=== PATIENT | male | born 1955 | race Caucasian/White ===

== ENCOUNTER → 2017-02-09 | Outpatient (CLI) | payer BC | LOC: COL.CARD 02-03 14:20 | DX: R03.0 Elevated blood-pressure reading, without diagnosis of hypertension (principal) ==

== ENCOUNTER → 2019-10-25 | Outpatient (CLI) | payer MEDICARE, BC | LOC: COL.RAD 08:45 | DX: Z13.6 Encounter for screening for cardiovascular disorders (principal) ==

== ENCOUNTER 2023-02-12 09:02 | Day surgery (SDC) | payer MEDICARE ==
[~2023-02-12] VITALS: Ht 180.3 cm; Wt 76.0 kg
[2023-02-12 09:38] VITALS: BP 132/94; PULSE 82; TEMP 97.3
[2023-02-12] MEDS ORDERED: XALATAN EYE DROPS OU (10:09)
[2023-02-12 11:11] VITALS: BP 122/84; PULSE 51; TEMP 97.4
[2023-02-12 11:25] VITALS: BP 122/78; PULSE 53
[2023-02-12 11:40] VITALS: BP 118/83; PULSE 54
[2023-02-12 11:55] VITALS: BP 119/72; PULSE 55
--- NOTE | 2023-02-12 15:31 | NUR ---
[id number]: PT TO RECOVERY BAY 2 FROM [facility]O [facility] S/P COLONOSCOPY WITH EMR/POLPECTOMY, CLIP(s) PLACED. ASSITED TO CHAIR WITH STEADY GAIT, A&O, PLACED ON MONITOR, VSS ON RA RECEIVED REPORT AND ASSUMED CARE OF PT FROM ENDO RN /RIDE HOME AT BEDSIDE PROVIDED BEVERAGE AND FOOD, TOLERATING WELL MD IN TO SEE PT POST-PROCEEDURE PT HAS REMAINED A&O, NAD, VSS ON RA, TOLERATING PO, IS WITHOUT SIGNIFICANT COMPLAINT, WITH STEADY GAIT THRU OUT STAY IV D/C'D. D/C INSTRUCTIONS, ANY FOLLOW UP REVIEWED AND HANDED TO PT. ALL QUESTIONS AND CONCERNS ADDRESSED TO PT SATISFACTION. TAKEN TO EXIT VIA W/C WITH ALL BELONGINGS AND PAPERWORK IN HAND, ASSISTED INTO PASSENGER SEAT OF POV. TO DRIVE HOME.
== END 2023-02-12 12:05 | disposition home or self-care (01) ==
LOC: SDCO 09:02
DX: Z12.11 Encounter for screening for malignant neoplasm of colon (principal); D12.0 Benign neoplasm of cecum; D12.2 Benign neoplasm of ascending colon; K57.30 Diverticulosis of large intestine without perforation or abscess without bleeding
CPT/HCPCS: J2704; J7120